=== PATIENT | male | born 1965 | race Caucasian/White ===

== ENCOUNTER 2016-06-24 16:23 | Emergency (ER) | payer OTHER ==
[2016-07-25] MEDS ORDERED: SIMVASTATIN40 MG PO (12:32)
[2016-07-25] MEDS ORDERED: FENOFIBRATE160 MG PO (12:33)
[2016-07-25] MEDS ORDERED: PANTOPRAZOLE SO40 MG PO (12:34)
[2016-07-25] MEDS ORDERED: LISINOPRIL5 MG PO (12:35)
[2016-07-25] MEDS ORDERED: METFORMIN HCL500 MG PO (12:35)
[2016-07-25] MEDS ORDERED: SERTRALINE HCL50 MG PO (12:35)
[2016-07-25] MEDS ORDERED: CYCLOBENZAPRINE10 MG PO (12:36)
[2016-07-25] MEDS ORDERED: NAPROXEN500 MG PO (12:37)
[2016-07-25] MEDS ORDERED: IBUPROFEN800 MG PO (12:38)
[2016-07-25] MEDS ORDERED: PERCOCET 5-3251 EACH PO (18:40)
[2016-07-25] MEDS ORDERED: ZOFRAN4 MG PO (18:41)
[2016-07-25] MEDS ORDERED: STOOL SOFTENER250 MG PO (18:42)
== END 2016-06-24 18:30 | disposition home or self-care (01) ==
LOC: ER1 16:23
DX: S46.011A Strain of muscle(s) and tendon(s) of the rotator cuff of right shoulder, initial encounter (principal); I10 Essential (primary) hypertension; E11.9 Type 2 diabetes mellitus without complications; E78.5 Hyperlipidemia, unspecified; W11.XXXA Fall on and from ladder, initial encounter; Y92.69 Other specified industrial and construction area as the place of occurrence of the external cause; Y99.0 Civilian activity done for income or pay; Z79.84 Long term (current) use of oral hypoglycemic drugs; Z79.899 Other long term (current) drug therapy
CPT/HCPCS: 71020; 73030; 99283

== ENCOUNTER → 2016-07-24 | Outpatient (CLI) | payer OTHER ==
[~2016-07-24] MED LIST: CYCLOBENZAPRINE10 MG PO; FENOFIBRATE160 MG PO; IBUPROFEN800 MG PO; LISINOPRIL5 MG PO; METFORMIN HCL500 MG PO; NAPROXEN500 MG PO; PANTOPRAZOLE SO40 MG PO; PERCOCET 5-3251 EACH PO; SERTRALINE HCL50 MG PO; SIMVASTATIN40 MG PO; STOOL SOFTENER250 MG PO; ZOFRAN4 MG PO
[2016-07-24 09:15] LABS: BUN/CREATININE RATIO 24 (0-10)
== END ==
LOC: OPSV2 08:09
PROVIDERS: Orthopaedic Surgery
DX: Z01.810 Encounter for preprocedural cardiovascular examination (principal); Z01.812 Encounter for preprocedural laboratory examination; Z01.818 Encounter for other preprocedural examination; M75.101 Unspecified rotator cuff tear or rupture of right shoulder, not specified as traumatic; Z79.1 Long term (current) use of non-steroidal anti-inflammatories (NSAID); Z79.84 Long term (current) use of oral hypoglycemic drugs; Z79.899 Other long term (current) drug therapy
CPT/HCPCS: 36415; 71020; 80048; 93005

== ENCOUNTER → 2016-07-25 | Day surgery (SDC) | payer OTHER ==
[~2016-07-25] VITALS: Ht 180.3 cm; Wt 115.2 kg
== END | disposition home or self-care (01) ==
LOC: OR 11:00
PROVIDERS: Orthopaedic Surgery
PROC: 0RBJ4ZZ Excision of Right Shoulder Joint, Percutaneous Endoscopic Approach (ICD-10-PCS; principal; 2016-07-25 13:55)
DX: S43.431A Superior glenoid labrum lesion of right shoulder, initial encounter (principal); M25.811 Other specified joint disorders, right shoulder; M75.51 Bursitis of right shoulder; I10 Essential (primary) hypertension; E78.5 Hyperlipidemia, unspecified; E11.9 Type 2 diabetes mellitus without complications; K21.9 Gastro-esophageal reflux disease without esophagitis; Z98.52 Vasectomy status; Z79.899 Other long term (current) drug therapy; Z86.69 Personal history of other diseases of the nervous system and sense organs; W20.8XXA Other cause of strike by thrown, projected or falling object, initial encounter
CPT/HCPCS: 82962; J0171; J0360; J0690; J1200; J2250; J2405; J2710; J2795; J3010; J7030; J7120